=== PATIENT | female | born 1985 | race Caucasian/White ===

== ENCOUNTER 2017-02-03 18:01 | Emergency (ER) | payer OTHER ==
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
[~2017-02-03 18:01] MED LIST: FLEXERIL10 MG PO; LORTAB 5/500 TA1 TA1 PO; MORGIDOX100 MG PO; NAPROSYN500 MG PO; NO MEDICATIONS; PHENERGAN25 M1 PO; PHENERGAN25 MG PO; ZOFRAN ODT4 MG PO
== END 2017-02-03 18:34 | disposition home or self-care (01) ==
LOC: CFTX 18:01
DX: S16.1XXA Strain of muscle, fascia and tendon at neck level, initial encounter (principal); Z86.19 Personal history of other infectious and parasitic diseases; Z98.51 Tubal ligation status; V49.00XA Driver injured in collision with unspecified motor vehicles in nontraffic accident, initial encounter
CPT/HCPCS: 72040; 84703; 99283

== ENCOUNTER 2017-03-17 15:58 | Emergency (ER) | payer OTHER ==
[2017-03-17 16:47] LABS: INFLUENZA A NEG (NEG); INFLUENZA B NEG (NEG)
[2017-03-17 17:03] LABS: URINE SOURCE CLEAN CATCH
[2017-03-17 17:29] LABS: URINE APPEARANCE CLEAR; URINE BILIRUBIN NEG (NEG); URINE BLOOD NEG (NEG); URINE COLOR DK YELLOW; URINE GLUCOSE NEG (NEG); URINE KETONE TRACE (NEG); URINE LEUKOCYTE ESTERASE TRACE (NEG); URINE NITRATE NEG (NEG); URINE PROTEIN 1+ (NEG); URINE SPECIFIC GRAVITY 1.024 (1.003-1.035)
[2017-03-17 17:32] LABS: URINE BACTERIA AUWI NEG (NEGATIVE); URINE PH 9.5 (5-8); URINE SQUAMOUS EPITHELIAL CELL FEW /[HPF]; UWBCS1 AUWI 0-2 (0-5)
[2017-03-17 17:33] LABS: CULTURE INDICATED? NO
== END 2017-03-17 18:10 | disposition home or self-care (01) ==
LOC: CED 15:58
PROVIDERS: Emergency Medicine
DX: J02.0 Streptococcal pharyngitis (principal)
CPT/HCPCS: 81003; 84703; 87804; 87880; 99283

== ENCOUNTER 2017-05-27 16:05 | Emergency (ER) | payer OTHER ==
[~2017-05-27] VITALS: Ht 167.6 cm; Wt 63.5 kg
--- NOTE | ~2017-05-27 | EKG ---
PATIENT: DANNY CANCINO UNIT #: [id number] Ventricular Rate: 77 BPM Atrial Rate: 77 BPM P-R Interval: 148 ms QRS Duration: 82 ms Q-T Interval: 358 ms QTC Calculation(Bezet): 405 ms P Bybee: 26 degrees Calculated R Bybee: 36 degrees Calculated T Bybee: 1 degrees Diagnosis Line: Normal sinus rhythm Diagnosis Line: Cannot rule out Inferior infarct , age Diagnosis Line: undetermined Diagnosis Line: Borderline ECG Diagnosis Line: Diagnosis Line: Confirmed by KRISTEN BRANDT MD ([id number]) on 05/28/2017 Diagnosis Line: 3:08:09 PM INTERPRETING MD: KARLY CARSON
[2017-05-27 17:07] LABS: BASOPHIL% 0.2 % (0-2.5); EOSINOPHIL# 0.2 X10e3 (0-0.7); EOSINOPHIL% 2.8 % (0.0-7.0); HEMATOCRIT 40.4 % (35.0-45.0); LYMPHOCYTE# 2.4 X10e3 (1.0-3.5); LYMPHOCYTE% 32.3 % (17.0-45.0); MEAN CORPUSCULAR HEMOGLOBIN 25.6 PG (28-34); MEAN CORPUSCULAR HGB CONC 32.1 g/dL (30-36); MEAN PLATELET VOLUME 8.9 FL (6.5-11.5); MONOCYTE# 0.7 X10e3 (0-1.0); MONOCYTE% 9.2 % (3.0-12.0); NEUTROPHIL% 55.5 % (40-75); PLATELET COUNT 213 X10e3 (140-420); RED BLOOD COUNT 5.05 X10e (3.90-5.30); RED CELL DISTRIBUTION WIDTH 14.4 % (11.0-15.5); WHITE BLOOD COUNT 7.3 X10e3 (4.0-10.5)
[2017-05-27 17:12] LABS: DIFF IND NO
[2017-05-27 17:27] LABS: URINE SOURCE CLEAN CATCH
[2017-05-27 17:31] LABS: BILIRUBIN, DIRECT 0.1 mg/dL (0.0-0.2); BILIRUBIN,INDIRECT 0.3 mg/dL (0.0-0.9); BILIRUBIN,TOTAL 0.4 mg/dL (0.2-2.0); CREATININE SERUM 0.8 mg/dL (0.6-1.4); GLOM FILT RATE Estimated 97.6 mL/min (>60); POTASSIUM 4.5 mmol/L (3.5-5.1); PROTEIN TOTAL SERUM 7.5 g/dL (6.0-8.3)
[2017-05-27 17:37] LABS: URINE APPEARANCE CLEAR; URINE BILIRUBIN NEG (NEG); URINE BLOOD NEG (NEG); URINE COLOR DK YELLOW; URINE GLUCOSE NEG (NEG); URINE KETONE TRACE (NEG); URINE LEUKOCYTE ESTERASE NEG (NEG); URINE NITRATE NEG (NEG); URINE PH 5.5 (5-8); URINE PROTEIN NEG (NEG); URINE SPECIFIC GRAVITY 1.031 (1.003-1.035)
== END 2017-05-27 17:52 | disposition home or self-care (01) ==
LOC: CED 16:05
PROVIDERS: Emergency Medicine
DX: R42 Dizziness and giddiness (principal); R10.9 Unspecified abdominal pain; M54.9 Dorsalgia, unspecified
CPT/HCPCS: 36415; 80048; 80076; 81003; 83690; 84703; 85025; 93005; 99284

== ENCOUNTER 2017-06-17 12:03 | Emergency (ER) | payer OTHER ==
[~2017-06-17] VITALS: Ht 167.6 cm; Wt 63.5 kg
[2017-06-17 13:10] LABS: BASOPHIL% 0.4 % (0-2.5); EOSINOPHIL# 0.1 X10e3 (0-0.7); EOSINOPHIL% 0.9 % (0.0-7.0); HEMATOCRIT 43.8 % (35.0-45.0); HEMOGLOBIN 14.5 gm/dL (12.0-16.0); LYMPHOCYTE# 0.8 X10e3 (1.0-3.5); LYMPHOCYTE% 9.2 % (17.0-45.0); MEAN CELL VOLUME 79.4 FL (83-96); MEAN CORPUSCULAR HEMOGLOBIN 26.3 PG (28-34); MEAN CORPUSCULAR HGB CONC 33.2 g/dL (30-36); MONOCYTE# 0.4 X10e3 (0-1.0); MONOCYTE% 4.4 % (3.0-12.0); NEUTROPHIL# 7.9 X10e3 (1.5-7.1); NEUTROPHIL% 85.1 % (40-75); PLATELET COUNT 207 X10e3 (140-420); RED BLOOD COUNT 5.51 X10e (3.90-5.30); WHITE BLOOD COUNT 9.2 X10e3 (4.0-10.5)
[2017-06-17 13:20] LABS: DIFF IND NO
[2017-06-17 13:35] LABS: ALBUMIN SERUM 4.2 g/dL (3.5-5.0); BILIRUBIN, DIRECT 0.2 mg/dL (0.0-0.2); BILIRUBIN,INDIRECT 1.2 mg/dL (0.0-0.9); BILIRUBIN,TOTAL 1.4 mg/dL (0.2-2.0); CALCIUM SERUM 9.1 mg/dL (8.4-10.2); CREATININE SERUM 0.8 mg/dL (0.6-1.4); GLOM FILT RATE Estimated 97.6 mL/min (>60); POTASSIUM 4.1 mmol/L (3.5-5.1); PROTEIN TOTAL SERUM 8.3 g/dL (6.0-8.3)
[2017-06-17 13:39] LABS: URINE SOURCE CLEAN CATCH
[2017-06-17 13:44] LABS: URINE APPEARANCE CLOUDY; URINE BILIRUBIN NEG (NEG); URINE BLOOD NEG (NEG); URINE COLOR YELLOW; URINE GLUCOSE NEG (NEG); URINE KETONE NEG (NEG); URINE LEUKOCYTE ESTERASE TRACE (NEG); URINE NITRATE NEG (NEG); URINE PROTEIN TRACE (NEG); URINE SPECIFIC GRAVITY 1.024 (1.003-1.035)
[2017-06-17 13:48] LABS: URINE BACTERIA AUWI NEG (NEGATIVE); URINE SQUAMOUS EPITHELIAL CELL FEW /[HPF]; UWBCS1 AUWI 0-2 (0-5)
[2017-06-17 13:50] LABS: CULTURE INDICATED? NO
== END 2017-06-17 14:46 | disposition home or self-care (01) ==
LOC: CED 12:03
PROVIDERS: Emergency Medicine
DX: R11.2 Nausea with vomiting, unspecified (principal); R10.9 Unspecified abdominal pain; Z98.51 Tubal ligation status
CPT/HCPCS: 36415; 80048; 80076; 81003; 82150; 83690; 84703; 85025; 96361; 96374; 96375; 99284; J1885; J2405